=== PATIENT | female | born 1975 | race Caucasian/White ===

== ENCOUNTER 2016-06-25 13:35 | Emergency (ER) | payer OTHER, BC ==
[~2016-06-25] VITALS: Ht 162.6 cm; Wt 103.1 kg
[~2016-06-25 13:35] MED LIST: SIMVASTATIN40 M1 PO
[2016-06-25] MEDS ORDERED: LISINOPRIL-HCT1 EAC3 PO (14:30)
[2016-06-25] MEDS ORDERED: SIMVASTATIN40 MG PO (14:30)
[2016-06-25] MEDS ORDERED: LEVOTHYROXINE75 MCG PO (14:30)
[2016-06-25] MEDS ORDERED: METFORMIN HCL500 M1 PO (14:30)
[2016-06-25] MEDS ORDERED: NAPROSYN500 MG PO (16:42)
[2016-06-25 17:17] VITALS: BP 122/65
== END 2016-06-25 17:18 | disposition home or self-care (01) ==
LOC: EME 13:35
DX: S00.03XA Contusion of scalp, initial encounter (principal); S16.1XXA Strain of muscle, fascia and tendon at neck level, initial encounter; V43.53XA Car driver injured in collision with pick-up truck in traffic accident, initial encounter; Y92.488 Other paved roadways as the place of occurrence of the external cause; E78.5 Hyperlipidemia, unspecified; I10 Essential (primary) hypertension
CPT/HCPCS: 70450; 72125; 99281; 99283

== ENCOUNTER 2017-05-02 12:44 | Emergency (ER) | payer BC ==
[~2017-05-02] VITALS: Ht 162.6 cm; Wt 108.5 kg
[~2017-05-02 12:44] MED LIST changes: +LEVOTHYROXINE75 MCG PO; +LISINOPRIL-HCT1 EAC3 PO; +METFORMIN HCL500 M1 PO; +NAPROSYN500 MG PO; +SIMVASTATIN40 MG PO
[2017-05-02] MEDS ORDERED: MOTRIN600 MG PO (14:30)
[2017-05-02] MEDS ORDERED: ZOFRAN4 MG PO (14:30)
[2017-05-02 14:49] VITALS: BP 118/71
== END 2017-05-02 15:01 | disposition home or self-care (01) ==
LOC: EME 12:44
DX: S50.02XA Contusion of left elbow, initial encounter (principal); S09.90XA Unspecified injury of head, initial encounter; M54.2 Cervicalgia; W00.0XXA Fall on same level due to ice and snow, initial encounter; Y93.01 Activity, walking, marching and hiking; I10 Essential (primary) hypertension; E78.5 Hyperlipidemia, unspecified; E03.9 Hypothyroidism, unspecified
CPT/HCPCS: 70450; 72125; 73080; 99281; 99284